=== PATIENT | male | born 1995 | race African-American/Black ===

== ENCOUNTER 2019-11-11 11:26 | Emergency (ER) | payer OTHER ==
[~2019-11-11] VITALS: Ht 185.4 cm; Wt 142.9 kg
[2019-11-11 11:27] VITALS: Ht 185.4 cm; Wt 142.9 kg
[2019-11-11 13:49] VITALS: BP 110/66
== END 2019-11-11 13:49 | disposition home or self-care (01) ==
LOC: ED 11:26
DX: R00.2 Palpitations (principal); T67.8XXA Other effects of heat and light, initial encounter; S92.351A Displaced fracture of fifth metatarsal bone, right foot, initial encounter for closed fracture; X58.XXXA Exposure to other specified factors, initial encounter; Y93.89 Activity, other specified; Y92.89 Other specified places as the place of occurrence of the external cause; Y99.8 Other external cause status
CPT/HCPCS: Q0092